=== PATIENT | female | born 1985 | race Caucasian/White ===

== ENCOUNTER 2017-07-09 20:44 | Emergency (ER) | payer SELFPAY ==
[~2017-07-09] VITALS: Ht 152.4 cm; Wt 86.2 kg
[2017-07-09 20:58] VITALS: Ht 152.4 cm; Wt 86.2 kg
[2017-07-09 22:01] LABS: BASOPHIL % 0.6 % (0-2); PLATELET COUNT 285 x10^3mcL (130-400)
[2017-07-09 22:04] LABS: RED CELL DISTRIBUTION WIDTH 14.8 % (11.5-14.5)
[2017-07-09 22:15] LABS: CALCIUM 8.8 mg/dL (8.5-10.1); CARBON DIOXIDE 27.6 mmol/L (21-32); CHLORIDE SERUM 100 mmol/L (98-107); CREATININE SERUM 0.9 mg/dL (0.6-1.0); GFR1 > 60 mL/min; GLUCOSE SERUM 91 mg/dL (74-106); POTASSIUM SERUM 3.5 mmol/L (3.5-5.1); SODIUM SERUM 138 mmol/L (136-145)
[2017-07-09 22:20] LABS: ALKALINE PHOSPHATASE 101 U/L (46-116); ALT/SGPT 56 U/L (14-59); AST/SGOT 25 U/L (15-37); BILIRUBIN TOTAL 0.6 mg/dL (0.20-1.00); LIPASE 98 IU/L (73-393)
[2017-07-09 22:22] LABS: TOTAL PROTEIN, SERUM 9.2 g/dL (6.4-8.2)
[2017-07-09 23:14] LABS: microscopic required? YES; urine erythrocyte TRACE (NEGATIVE)
[2017-07-10 01:24] VITALS: BP 121/66
== END 2017-07-10 01:24 | disposition home or self-care (01) ==
LOC: ED 20:44
PROVIDERS: Emergency Medicine
DX: K57.90 Diverticulosis of intestine, part unspecified, without perforation or abscess without bleeding (principal); J45.909 Unspecified asthma, uncomplicated
CPT/HCPCS: J1885; J2270; J2405; J3490; J7030

== ENCOUNTER 2018-08-06 22:23 | Emergency (ER) | payer SELFPAY ==
[~2018-08-06] VITALS: Ht 152.4 cm; Wt 86.4 kg
[2018-08-06 22:27] VITALS: Ht 152.4 cm; Wt 86.4 kg
[2018-08-06 23:14] LABS: BASOPHIL % 1.6 % (0-2); PLATELET COUNT 280 x10^3mcL (130-400); RED CELL DISTRIBUTION WIDTH 14.4 % (11.5-14.5)
[2018-08-06 23:28] LABS: CALCIUM 8.6 mg/dL (8.5-10.1); CARBON DIOXIDE 25.8 mmol/L (21-32); CHLORIDE SERUM 103 mmol/L (98-107); CREATININE SERUM 0.7 mg/dL (0.6-1.0); GFR1 > 60 mL/min; GLUCOSE SERUM 96 mg/dL (74-106); POTASSIUM SERUM 3.6 mmol/L (3.5-5.1); SODIUM SERUM 138 mmol/L (136-145)
[2018-08-06 23:34] LABS: ALBUMIN 3.7 g/dL (3.4-5.0); ALKALINE PHOSPHATASE 88 U/L (46-116); ALT/SGPT 44 U/L (14-59); AST/SGOT 28 U/L (15-37); BILIRUBIN TOTAL 0.6 mg/dL (0.20-1.00); LIPASE 92 IU/L (73-393)
[2018-08-06 23:39] LABS: TOTAL PROTEIN, SERUM 8.3 g/dL (6.4-8.2)
[2018-08-06 23:55] LABS: AMPHETAMINE QUAL UR NONE DETECTED (See below)
[2018-08-07 03:00] VITALS: BP 104/67
== END 2018-08-07 03:00 | disposition home or self-care (01) ==
LOC: ED 22:23
PROVIDERS: Emergency Medicine
DX: R07.89 Other chest pain (principal); R06.02 Shortness of breath; J45.909 Unspecified asthma, uncomplicated; Z98.890 Other specified postprocedural states
CPT/HCPCS: 36415; 83880; 85378; Q0092

== ENCOUNTER 2019-03-28 19:07 | Inpatient (IN) | payer OTHER ==
[~2019-03-28] VITALS: Ht 154.9 cm; Wt 81.0 kg
[2019-03-28 20:53] LABS: BASOPHIL % 0.6 % (0-2); PLATELET COUNT 333 x10^3mcL (130-400); RED CELL DISTRIBUTION WIDTH 14.3 % (11.5-14.5)
[2019-03-28 20:57] LABS: CALCIUM 8.5 mg/dL (8.5-10.1); CARBON DIOXIDE 28.3 mmol/L (21-32); CHLORIDE SERUM 102 mmol/L (98-107); CREATININE SERUM 0.8 mg/dL (0.6-1.0); GFR1 > 60 mL/min; GLUCOSE SERUM 92 mg/dL (74-106); POTASSIUM SERUM 3.9 mmol/L (3.5-5.1); SODIUM SERUM 138 mmol/L (136-145)
[2019-03-28 21:01] LABS: ALBUMIN 3.5 g/dL (3.4-5.0); ALKALINE PHOSPHATASE 77 U/L (46-116); ALT/SGPT 22 U/L (14-59); AST/SGOT 14 U/L (15-37); BILIRUBIN TOTAL 0.7 mg/dL (0.20-1.00); LIPASE 52 IU/L (73-393); TOTAL PROTEIN, SERUM 8.2 g/dL (6.4-8.2)
[2019-03-29 02:33] LABS: UA SPECIFIC GRAVITY 1.025 (1.005-1.035); microscopic required? YES; urine erythrocyte TRACE (NEGATIVE)
[2019-03-29 02:55] VITALS: BP 109/64
[2019-03-29 03:59] VITALS: Ht 154.9 cm; Wt 81.0 kg
[2019-03-29 04:18] LABS: AMPHETAMINE QUAL UR NONE DETECTED (See below)
[2019-03-29 05:18] VITALS: BP 101/61
[2019-03-29 05:30] VITALS: BP 102/60
[2019-03-29 07:39] VITALS: BP 109/62
[2019-03-29 07:51] LABS: BASOPHIL % 0.4 % (0-2); PLATELET COUNT 274 x10^3mcL (130-400); RED CELL DISTRIBUTION WIDTH 14.4 % (11.5-14.5)
[2019-03-29 08:05] LABS: CALCIUM 7.6 mg/dL (8.5-10.1); CARBON DIOXIDE 24.8 mmol/L (21-32); CHLORIDE SERUM 106 mmol/L (98-107); CREATININE SERUM 0.6 mg/dL (0.6-1.0); GFR1 > 60 mL/min; GLUCOSE SERUM 77 mg/dL (74-106); MAGNESIUM 1.8 mg/dL (1.8-2.4); PHOSPHOROUS 3.1 mg/dL (2.5-4.9); POTASSIUM SERUM 3.5 mmol/L (3.5-5.1); SODIUM SERUM 139 mmol/L (136-145)
[2019-03-29 15:47] VITALS: BP 106/66
[2019-03-29 20:17] VITALS: BP 107/67
[2019-03-30 04:51] VITALS: BP 113/73
[2019-03-30 06:19] LABS: BASOPHIL % 0.5 % (0-2); PLATELET COUNT 293 x10^3mcL (130-400); RED CELL DISTRIBUTION WIDTH 14.2 % (11.5-14.5)
[2019-03-30 06:40] LABS: CARBON DIOXIDE 18.9 mmol/L (21-32); CHLORIDE SERUM 105 mmol/L (98-107); CREATININE SERUM 0.5 mg/dL (0.6-1.0); GFR1 > 60 mL/min; GLUCOSE SERUM 74 mg/dL (74-106); MAGNESIUM 1.9 mg/dL (1.8-2.4); PHOSPHOROUS 3.4 mg/dL (2.5-4.9); SODIUM SERUM 138 mmol/L (136-145)
[2019-03-30 07:59] VITALS: BP 109/62
[2019-03-30 12:03] VITALS: BP 124/86
[2019-03-30 16:18] VITALS: BP 123/74
[2019-03-30 19:49] VITALS: BP 113/72
[2019-03-31 04:26] VITALS: BP 108/60
[2019-03-31 05:09] LABS: RAPID PLASMA REAGIN Non Reactive (Non Reactive)
[2019-03-31 06:51] LABS: BASOPHIL % 0.3 % (0-2); PLATELET COUNT 344 x10^3mcL (130-400); RED CELL DISTRIBUTION WIDTH 14.4 % (11.5-14.5)
[2019-03-31 06:56] LABS: CALCIUM 8.6 mg/dL (8.5-10.1); CARBON DIOXIDE 23.7 mmol/L (21-32); CHLORIDE SERUM 104 mmol/L (98-107); CREATININE SERUM 0.5 mg/dL (0.6-1.0); GFR1 > 60 mL/min; GLUCOSE SERUM 117 mg/dL (74-106); MAGNESIUM 1.8 mg/dL (1.8-2.4); PHOSPHOROUS 2.6 mg/dL (2.5-4.9); POTASSIUM SERUM 3.9 mmol/L (3.5-5.1); SODIUM SERUM 139 mmol/L (136-145)
[2019-03-31 07:49] VITALS: BP 108/67
[2019-03-31 12:01] VITALS: BP 117/69
[2019-03-31 15:38] VITALS: BP 125/76
[2019-03-31 21:53] VITALS: BP 111/64
[2019-04-01 04:20] VITALS: BP 107/68
[2019-04-01 07:26] LABS: BASOPHIL % 0.2 % (0-2); PLATELET COUNT 311 x10^3mcL (130-400)
[2019-04-01 07:35] LABS: RED CELL DISTRIBUTION WIDTH 15.1 % (11.5-14.5)
[2019-04-01 08:12] VITALS: BP 109/62
[2019-04-01 08:12] LABS: CALCIUM 8.5 mg/dL (8.5-10.1); CARBON DIOXIDE 25.9 mmol/L (21-32); CHLORIDE SERUM 104 mmol/L (98-107); CREATININE SERUM 0.4 mg/dL (0.6-1.0); GFR1 > 60 mL/min; GLUCOSE SERUM 128 mg/dL (74-106); MAGNESIUM 1.7 mg/dL (1.8-2.4); POTASSIUM SERUM 3.9 mmol/L (3.5-5.1); SODIUM SERUM 140 mmol/L (136-145)
[2019-04-01 16:27] VITALS: BP 95/51
[2019-04-01 20:50] VITALS: BP 114/67
[2019-04-02 04:58] VITALS: BP 103/48
[2019-04-02 06:15] LABS: CALCIUM 8.2 mg/dL (8.5-10.1); CARBON DIOXIDE 26.9 mmol/L (21-32); CHLORIDE SERUM 106 mmol/L (98-107); CREATININE SERUM 0.5 mg/dL (0.6-1.0); GFR1 > 60 mL/min; GLUCOSE SERUM 108 mg/dL (74-106); MAGNESIUM 1.6 mg/dL (1.8-2.4); PHOSPHOROUS 2.6 mg/dL (2.5-4.9); POTASSIUM SERUM 3.5 mmol/L (3.5-5.1); SODIUM SERUM 141 mmol/L (136-145)
[2019-04-02 08:06] VITALS: BP 98/55
[2019-04-02 11:28] LABS: PLATELET COUNT 308 x10^3mcL (130-400); RED CELL DISTRIBUTION WIDTH 15.1 % (11.5-14.5)
[2019-04-02 11:29] LABS: rbc morphology (normal/abnorm) ABNORMAL (NORMAL)
[2019-04-02 16:23] VITALS: BP 108/69
[2019-04-02 20:18] VITALS: BP 109/68
[2019-04-03 04:57] VITALS: BP 109/62
[2019-04-03 06:36] LABS: CALCIUM 8.3 mg/dL (8.5-10.1); CARBON DIOXIDE 27.4 mmol/L (21-32); CHLORIDE SERUM 105 mmol/L (98-107); CREATININE SERUM 0.5 mg/dL (0.6-1.0); GFR1 > 60 mL/min; GLUCOSE SERUM 102 mg/dL (74-106); POTASSIUM SERUM 3.4 mmol/L (3.5-5.1); SODIUM SERUM 141 mmol/L (136-145)
[2019-04-03 07:37] LABS: BASOPHIL % 0.5 % (0-2); PLATELET COUNT 311 x10^3mcL (130-400)
[2019-04-03 07:39] LABS: RED CELL DISTRIBUTION WIDTH 14.8 % (11.5-14.5)
[2019-04-03 08:49] VITALS: BP 111/70
[2019-04-03] MEDS ORDERED: DOXYCYCLINE HY100 MG PO (09:08)
[2019-04-03] MEDS ORDERED: FLA500 PO (09:08)
[2019-04-03] MEDS ORDERED: AMOXICILLIN AND1 TA3 PO (09:09)
[2019-04-03] MEDS ORDERED: NORCO1 TA2 PO (09:12)
[2019-04-03 11:12] VITALS: BP 111/70
== END 2019-04-03 13:09 | disposition home or self-care (01) | DRG 710 ==
LOC: ED 19:07 → DU 03-29 00:15 → MU 03-29 00:15 → DU 03-29 02:49 → MU 03-31 10:20
PROVIDERS: Emergency Medicine; Obstetrics & Gynecology; ADMIT General Practice
PROC: 0UB10ZZ Excision of Left Ovary, Open Approach (ICD-10-PCS; 2019-03-31)
PROC: 0DNN0ZZ Release Sigmoid Colon, Open Approach (ICD-10-PCS; principal; 2019-03-31 16:00)
DX: A41.9 Sepsis, unspecified organism (principal); K65.9 Peritonitis, unspecified; K57.20 Diverticulitis of large intestine with perforation and abscess without bleeding; K57.92 Diverticulitis of intestine, part unspecified, without perforation or abscess without bleeding; Z68.33 Body mass index [BMI] 33.0-33.9, adult; D53.9 Nutritional anemia, unspecified; L40.9 Psoriasis, unspecified; J45.909 Unspecified asthma, uncomplicated; N70.92 Oophoritis, unspecified; E66.9 Obesity, unspecified; Z68.34 Body mass index [BMI] 34.0-34.9, adult
CPT/HCPCS: 82962; 87491; 87591; 94150; G0378; J0692; J0696; J1170; J1885; J2270; J2405; J2704; J2710; J3010; J3490; J7030; J7050; J7060; J7120; Q0092; Q9966; Q9967

== ENCOUNTER 2019-10-26 18:51 | Emergency (ER) | payer OTHER ==
[~2019-10-26] VITALS: Ht 154.9 cm; Wt 84.4 kg
[~2019-10-26 18:51] MED LIST: AMOXICILLIN AND1 TA3 PO; DOXYCYCLINE HY100 MG PO; FLA500 PO; NORCO1 TA2 PO
[2019-10-26 18:52] VITALS: Ht 154.9 cm; Wt 84.4 kg
[2019-10-26 20:34] LABS: BASOPHIL % 0.3 % (0-2); PLATELET COUNT 286 x10^3mcL (130-400)
[2019-10-26 20:36] LABS: RED CELL DISTRIBUTION WIDTH 16.3 % (11.5-14.5)
[2019-10-26 20:48] LABS: CALCIUM 8.9 mg/dL (8.5-10.1); CHLORIDE SERUM 106 mmol/L (98-107); CREATININE SERUM 1.1 mg/dL (0.6-1.0); GFR1 > 60 mL/min; GLUCOSE SERUM 100 mg/dL (74-106); POTASSIUM SERUM 3.9 mmol/L (3.5-5.1); SODIUM SERUM 141 mmol/L (136-145)
[2019-10-26 20:52] LABS: ALBUMIN 3.6 g/dL (3.4-5.0); ALKALINE PHOSPHATASE 94 U/L (46-116); ALT/SGPT 31 U/L (14-59); AST/SGOT 20 U/L (15-37); BILIRUBIN TOTAL 0.25 mg/dL (0.20-1.00); TOTAL PROTEIN, SERUM 7.6 g/dL (6.4-8.2)
[2019-10-26 20:54] LABS: T3 TOTAL 1.1 ng/mL
[2019-10-26 21:03] LABS: FREE T4 0.84 ng/dL (0.76-1.46); FREE THYROXINE INDEX 1.7 ug/dL (1.4-4.5); T4(THYROXINE) 5.1 ug/dL (4.7-13.3)
[2019-10-26 21:41] VITALS: BP 109/65
== END 2019-10-26 21:41 | disposition home or self-care (01) ==
LOC: ED 18:51
PROVIDERS: Emergency Medicine
DX: R42 Dizziness and giddiness (principal); T42.8X5A Adverse effect of antiparkinsonism drugs and other central muscle-tone depressants, initial encounter; Y92.89 Other specified places as the place of occurrence of the external cause
CPT/HCPCS: 36415; 84439

== ENCOUNTER 2020-02-25 09:22 | Emergency (ER) | payer OTHER ==
[~2020-02-25] VITALS: Ht 154.9 cm; Wt 86.6 kg
[2020-02-25 09:30] VITALS: Ht 154.9 cm; Wt 86.6 kg
[2020-02-25 10:59] LABS: BASOPHIL % 0.4 % (0-2); PLATELET COUNT 240 x10^3mcL (130-400)
[2020-02-25 11:02] LABS: RED CELL DISTRIBUTION WIDTH 15.4 % (11.5-14.5)
[2020-02-25 12:18] VITALS: BP 124/74
== END 2020-02-25 12:18 | disposition home or self-care (01) ==
LOC: ED 09:22
PROVIDERS: Emergency Medicine
DX: N93.8 Other specified abnormal uterine and vaginal bleeding (principal); J45.909 Unspecified asthma, uncomplicated; Z98.890 Other specified postprocedural states

== ENCOUNTER 2020-04-22 14:50 | Emergency (ER) | payer OTHER ==
[~2020-04-22] VITALS: Ht 152.4 cm; Wt 87.8 kg
[2020-04-22 15:28] VITALS: Ht 152.4 cm; Wt 87.8 kg
[2020-04-22 16:50] VITALS: BP 122/69
== END 2020-04-22 16:50 | disposition home or self-care (01) ==
LOC: ED 14:50
DX: M72.2 Plantar fascial fibromatosis (principal); J45.909 Unspecified asthma, uncomplicated